=== PATIENT | male | born 1935 | race Two or more races ===

== ENCOUNTER 2019-10-14 13:24 | Inpatient (IN) | payer OTHER ==
[~2019-10-14] VITALS: Ht 172.7 cm; Wt 81.5 kg
[2019-10-14] MEDS ORDERED: SODIUM CHLORIDE 0.9% 1,000 ML IV ONE ×2 (13:35)
[2019-10-14 14:35] LABS: Basophils # (auto) 0 10 ^3/uL (0-0.2); Basophils % (auto) 1.6 % (0.0-2.0); Eosinophils # (auto) 0.1 10 ^3/uL (0-0.8); Eosinophils % (auto) 2.1 % (0.0-7.0); Hematocrit 41.4 % (41.0-53.0); Hemoglobin 13.4 g/dL (13.5-17.5); Lymphocytes # (auto) 0.7 10 ^3/uL (0.4-5.4); Lymphocytes % (auto) 21.9 % (10.0-50.0); Mean Corpuscular Hemoglobin 30.1 pg (28.0-32.0); Mean Corpuscular Hgb Conc. 32.4 g/dL (32.0-36.0); Mean Corpuscular Volume 92.8 fL (80.0-100.0); Monocytes # (auto) 0.4 10 ^3/uL (0-1.3); Neutrophils # (auto) 1.9 10 ^3/uL (1.6-8.6); Neutrophils % (auto) 61.4 % (37.0-80.0); Nucleated Red Blood Cells % 0.1 %; Platelet Count (auto) 171 10^3/uL (140-450); Red Blood Cells 4.46 10^6/uL (4.5-5.90); Red Cell Distribution Width 13.3 % (11.8-14.3)
[2019-10-14 14:52] LABS: INR 1.03 (0.9-1.15)
[2019-10-14 14:58] LABS: Albumin 3.3 g/dL (3.4-5.0); Anion Gap 6 (5-15); Blood Urea Nitrogen 14 mg/dL (7-18); Calcium 8.4 mg/dL (8.5-10.1); Carbon Dioxide 29 mmol/L (21-32); Chloride 103 mmol/L (98-107); Glucose 101 mg/dL (74-106); Potassium 3.8 mmol/L (3.5-5.1); Sodium 138 mmol/L (136-145)
[2019-10-14 15:02] LABS: Alanine Aminotransferase 93 U/L (16-61); Aspartate Aminotransferase 37 U/L (15-37); BUN/Creatinine Ratio 13.7; GFR African American 89 mL/min; GFR Non-African American 74 mL/min
[2019-10-14 15:05] LABS: Alkaline Phosphatase 67 U/L (45-117); Bilirubin, Total 0.5 mg/dL (0.2-1.0); Total Protein 6.6 g/dL (6.4-8.2)
[2019-10-14] MEDS ORDERED: HALOPERIDOL LACTATE 5 MG/ML INJ VIAL IM ONE ×2 (15:15→17:45)
[2019-10-14 17:00] LABS: Urine Bacteria NONE SEEN /hpf (None Seen); Urine Blood Negative /uL (Negative); Urine Mucus FEW (None Seen); Urine Specific Gravity 1.021 (1.001-1.035); Urine WBC 1 /hpf (0 - 3)
[2019-10-14] MEDS ORDERED: LORazepam 2MG/ML-1ML VIAL ONE (17:30)
[2019-10-14] MEDS ORDERED: LORazepam 0.5 MG TAB PO ONE (17:30)
[2019-10-14] MEDS ORDERED: HALOPERIDOL LACTATE 5 MG/ML INJ VIAL ONE (17:40)
[2019-10-14] MEDS ORDERED: diphenhdrAMINE HCL 50 MG/1 ML VL ONE (17:40)
[2019-10-14] MEDS ORDERED: diphenhdrAMINE HCL 50 MG/1 ML VL IV ONE (17:45)
[2019-10-14] MEDS ORDERED: LORazepam 2MG/ML-1ML VIAL IV ONE (17:45)
[2019-10-14] MEDS ORDERED: MORPHINE SULF INJ 2 MG/ML SYRINGE 1ML IV PRN ×2 (18:30)
[2019-10-14] MEDS ORDERED: risperiDONE 1 MG TAB PO ONE (18:30)
[2019-10-14] MEDS ORDERED: NITROGLYCERIN 0.4 MG SL TAB SL PRN (18:30)
[2019-10-14] MEDS ORDERED: LORazepam 2MG/ML-1ML VIAL IV PRN (18:30)
[2019-10-14] MEDS ORDERED: traMADol HCL 50 MG TAB PO PRN (18:30)
[2019-10-14] MEDS ORDERED: ACETAMINOPHEN 500 MG TAB PO PRN (18:30)
[2019-10-14] MEDS ORDERED: ONDANSETRON HCL 4 MG/2 ML VIAL IV PRN (18:30)
[2019-10-14] MEDS ORDERED: TEMAZEPAM 15 MG CAP PO PRN (18:30)
[2019-10-14 20:30] VITALS: BP 156/98
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
[2019-10-14 22:00] VITALS: BP 156/98
--- NOTE | 2019-10-14 22:30 | NUR ---
pt continues to yell out, and is confused, threatening staff and uncooperative with care.
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
--- NOTE | 2019-10-15 02:30 | NUR ---
pt yelling at staff, threatening, not redirectable, uncooperative with care. Sitter remains at bedside, restraints continue, skin warm and intact. Pt refuses fluids.
--- NOTE | 2019-10-15 04:30 | NUR ---
pt yelling, agitated, prn ativan given. Pt remains confused and threatening staff.
[2019-10-15 05:00] VITALS: BP 137/96
--- NOTE | 2019-10-15 06:30 | NUR ---
attempted to remove restraints, pt angry, yelling, uncooperative wtih staff, threatening, redirection ineffective. restraints continue, sitter at bedside.
--- NOTE | 2019-10-15 07:35 | NUR ---
PATIENT ROUNDS PATIENT LYING IN BED, NO DISTRESS NOTED. BED IN LOWEST POSITION, SIDE RAILS UP X2, CALL LIGHT WITHIN REACH. WILL CONTINUE TO MONITOR. AUTO ELECTRICIAN AT BEDSIDE.
[2019-10-15 09:00] VITALS: BP 156/87
--- NOTE | 2019-10-15 09:10 | NUR ---
PATIENT ROUNDS PATIENT LYING IN BED, NO DISTRESS NOTED. BED IN LOWEST POSITION, SIDE RAILS UP X2, DEVELOPMENT OFFICER AT BEDSIDE. WILL CONTINUE TO MONITOR.
[2019-10-15] MEDS: risperiDONE 1 MG TAB PO SCH (10:00)
--- NOTE | 2019-10-15 11:15 | NUR ---
PATIENT ROUNDS PATIENT LYING IN BED, NO DISTRESS NOTED. PARTIAL LINEN CHANGE, PATIENT RESTLESS DURING HYGIENE CARE. BED IN LOWEST POSITION, SIDE RAILS UP X2, GETTER OPERATOR AT BEDSIDE. WILL CONTINUE TO MONITOR.
[2019-10-15] MEDS ORDERED: HALOPERIDOL LACTATE 5 MG/ML INJ VIAL IM PRN (11:45)
[2019-10-15 13:00] VITALS: BP 145/91
--- NOTE | 2019-10-15 14:35 | NUR ---
RESTRAINTS PATIENT REMOVED FROM RESTRAINTS BY RELAY TESTER HELPER AND ASSISTED TO RESTROOM. PATIENT IS CALM AND COOPERATIVE AT THIS TIME. PATIENT ASSISTED TO BEDSIDE CHAIR AND IS EATING LUNCH, TORTILLA MAKER AT BEDSIDE. WILL CONTINUE TO MONITOR AND ASSESS PATIENT.
--- NOTE | 2019-10-15 15:43 | NUR ---
Assessment Regarding social service consult for placement. Patient is an 84-year-old male who is confused. Assessment was completed with patient daughter Domonique Ph:). Per Domonique prior to admission patient lived at [facility] and functioned independently. Per Domonique patient condition decrease and needed assistance. Per Domonique she is unable to care for patient at this time and patient is unable to return to [facility] and she is considering [facility] and [facility]. Per Domonique patient does not have any medical equipment. Per Domonique she will contact me back regarding which facility she will be placing patient. Informed Domonique she has a right to participate in all discharge planning. Domonique verbalized understanding discharge plan. Placed follow up called to Domonique at 15:38 regarding placement. Per Domonique she has been in contact with [facility] and is in the process to complete the application with the facility. Informed Domonique doctor plans on discharging patient on Friday. Domonique verbalize understanding discharge plan. Addendum: 10/15/19 at 1544 by WILLIAM GONZALEZ Amended: Links added.
[2019-10-15 17:00] VITALS: BP 131/82
--- NOTE | 2019-10-15 18:12 | NUR ---
ROUNDS PATIENT SITTING UP ON SIDE OF BED EATING DINNER, ELECTRICAL AND INSTRUMENTATION MANAGER AT BEDSIDE. PATIENT SITTING CALMLY, BED IN LOWEST POSITION SIDE RAILS UP X2 CALL LIGHT WITHIN REACH. WILL CONTINUE TO MONITOR AND INITIATE PLAN OF CARE.
--- NOTE | 2019-10-15 19:35 | NUR ---
Opening Shift Note Assumed care of patient, awake and alert. No S/S of distress/SOB or pain. Sitter at bedside and fall precautions in place. Instructed on POC and to call for assist PRN, will continue to monitor for changes Q1hr and PRN. bed in low position and call light within reach.
[2019-10-15 22:00] VITALS: BP 138/88
[2019-10-15 23:45] LABS: Folate (Folic Acid) 11.9 ng/mL (5.38-24)
[2019-10-16 04:47] VITALS: BP 120/70
--- NOTE | 2019-10-16 07:27 | NUR ---
report given to dayshift rn patient denies sob distress or pain . call light within reach. fall precautions in place. sitter at bedside. iv is intact and patent.
[2019-10-16 08:56] VITALS: BP 115/74
[2019-10-16] MEDS: risperiDONE 1 MG TAB PO SCH (10:15)
[2019-10-16 12:45] VITALS: BP 104/83
[2019-10-16] MEDS ORDERED: HALOPERIDOL LACTATE 5 MG/ML INJ VIAL IM PRN (17:45)
--- NOTE | 2019-10-16 19:30 | NUR ---
Opening Shift Note Assumed care of patient, awake. Pt arousable to name, is unaware of location, situation or time. No S/S of distress/SOB or pain. Pt calm and relaxed. No S/S of agitation or combative nature at this time. Safety measures in place, bed in lowest position, bed railed raised x2, call light within reach, sitter at bedside. Instructed on POC and to call for assist PRN, will continue to monitor for changes Q1hr and PRN.
[2019-10-16 21:00] VITALS: BP 116/73
[2019-10-16] MEDS: MIRTAZAPINE 30 MG TAB PO SCH (22:00)
--- NOTE | 2019-10-16 22:00 | NUR ---
Pt refused prescribed Remeron. Pt educated on the benefits of taking the medication. Pt still refused. Will continue to monitor for changes in mood and/ or status.
[2019-10-17 05:00] VITALS: BP 130/83
[2019-10-17 07:04] LABS: Basophils # (auto) 0 10 ^3/uL (0-0.2); Basophils % (auto) 0.7 % (0.0-2.0); Eosinophils # (auto) 0.2 10 ^3/uL (0-0.8); Eosinophils % (auto) 3.4 % (0.0-7.0); Hematocrit 44.1 % (41.0-53.0); Hemoglobin 14.9 g/dL (13.5-17.5); Lymphocytes % (auto) 19.9 % (10.0-50.0); Mean Corpuscular Hemoglobin 31.2 pg (28.0-32.0); Mean Corpuscular Hgb Conc. 33.7 g/dL (32.0-36.0); Mean Corpuscular Volume 92.5 fL (80.0-100.0); Monocytes # (auto) 0.6 10 ^3/uL (0-1.3); Neutrophils # (auto) 3.3 10 ^3/uL (1.6-8.6); Nucleated Red Blood Cells % 0.1 %; Platelet Count (auto) 188 10^3/uL (140-450); Red Blood Cells 4.77 10^6/uL (4.5-5.90); Red Cell Distribution Width 13.8 % (11.8-14.3); White Blood Cell 5.2 10^3/uL (4.4-10.8)
[2019-10-17 07:22] LABS: BUN/Creatinine Ratio 19.5; Calcium 8.8 mg/dL (8.5-10.1); Magnesium 2.5 mg/dL (1.6-2.6); Potassium 3.6 mmol/L (3.5-5.1)
--- NOTE | 2019-10-17 08:00 | NUR ---
Morning note Patient ambulating from restroom to bed with a steady gait, respirations even and unlabored; no distress noted. Instructed patient on POC, fall precautions and to call for assistance as needed. Patient verbalized understanding although frequent reorientation is needed due to confusion. Fall precautions in place with call light within reach.
[2019-10-17 09:00] VITALS: BP 126/75
[2019-10-17] MEDS: risperiDONE 1 MG TAB PO SCH (09:06)
--- NOTE | 2019-10-17 11:00 | NUR ---
Patient refusing to have telemonitor in place Education provided to the patient. Patient unable to comprehend due to confusion.
--- NOTE | 2019-10-17 12:56 | NUR ---
EEG- ELECTROENCEPHALOGRAM COMPLETED ON 10/17/2019 @ 10:10.
[2019-10-17 13:00] VITALS: BP 117/65
--- NOTE | 2019-10-17 13:14 | NUR ---
Nutrition Assessment Notes Please refer to link for full assessment notes. Est Energy needs: 3478-9663 kcals (17-20 kcal/kgBW) Est Protein needs: 91-101 gms/day (1.0-1.1 gm/kgBW) Will continue to monitor and reassess prn. Addendum: 10/17/19 at [address] Amended: Links added.
--- NOTE | 2019-10-17 14:15 | NUR ---
MD was at bedside - Dr. Bhat; notified MD of patient's refusal to have telemonitor in place MD verbalized understanding.
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
[2019-10-17] MEDS ORDERED: FINASTERIDE 5 MG TAB PO SCH (15:15)
--- NOTE | 2019-10-17 16:50 | NUR ---
Scanned bladder: >200ml urine located Patient reports the urge to urinate with very little UO. Notified .
[2019-10-17 17:00] VITALS: BP 117/72
--- NOTE | 2019-10-17 17:15 | NUR ---
MD verbalized understanding RE: bladder scan result Urology consult to remain as ordered per MD.
--- NOTE | 2019-10-17 18:33 | NUR ---
Closing note Patient resting in bed with even and unlabored respirations, no distress noted. Fall precautions in place with call light within reach.
--- NOTE | 2019-10-17 18:42 | NUR ---
RE: Behavior Patient ambulated to nursing station requesting to call his . Patient stated "I want to call my so that she can come pick me up. Or my daughter. I want them to come pick me up." Instructed patient that he is not discharged by the doctor. Reoriented patient to situation and surroundings. Instructed patient that this RN will call his and transfer the phone call to bedside. Patient returned to hospital bed with no complications. This RN called patient's daughter, Domonique. No answer. Voicemail left.
--- NOTE | 2019-10-17 18:55 | NUR ---
RE: Behavior Patient ambulated to nursing station. Patient stated "I'm going to call a taxi to take me home." Reoriented patient to surroundings and situation. Patient unable to comprehend d/t confusion. Patient returned to hospital bed with no complications. Call light within reach.
--- NOTE | 2019-10-17 19:20 | NUR ---
Opening Shift Note Assumed care of patient, awake and alert. Pt only oriented to self. Pt unaware of place, time or situation. Pt was noted attempting to walk out of assigned room and into nurses station. Pt redirected to room and reoriented to situation and hospital setting. Per day RN, pt was attempting to call his and daughter to pick him up and then attempted to call a taxi as well. Pt not combative or aggressive at this time, but very confused and distractible. No S/S of distress/SOB or pain. Safety measures in place, bed in lowest position, bed rails raised x2, call light within reach, sitter at bedside. Instructed on POC and to call for assist PRN, will continue to monitor for changes Q1hr and PRN. Sitter advised to call this RN if the patient becomes agitated or combative. This RN has been able to calm the patient and deescalate him.
--- NOTE | 2019-10-17 19:25 | NUR ---
Care endorsed to LAWSON Kraus.
[2019-10-17 22:00] VITALS: BP 117/74
[2019-10-17] MEDS: MIRTAZAPINE 30 MG TAB PO SCH (22:02)
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
--- NOTE | 2019-10-18 05:00 | NUR ---
PT REFUSED 0500 VITALS RN NOTIFIED
--- NOTE | 2019-10-18 06:17 | NUR ---
Pt refused morning vitals and is still refusing to wear his tele box.
--- NOTE | 2019-10-18 08:00 | NUR ---
Received pt resting in bed, call light within reach, sitter at bed side, will continue to monitor pt.
--- NOTE | 2019-10-18 08:30 | NUR ---
Dr. Avila / neuro at bed side to see pt.
[2019-10-18 10:32] VITALS: BP 146/78
[2019-10-18] MEDS: risperiDONE 1 MG TAB PO SCH (11:02)
[2019-10-18 11:56] LABS: Free T4 (Free Thyroxine) 1.42 ng/dL (0.89-1.76)
[2019-10-18 11:57] LABS: Free T3 2.91 pg/mL (2.3-4.2)
[2019-10-18 13:21] VITALS: BP 95/60
[2019-10-18 16:53] VITALS: BP 110/70
--- NOTE | 2019-10-18 16:56 | NUR ---
D/C Planning Placed call to patient daughter Domonique several times today regarding placement for patient no answer no call back.
[2019-10-18 22:00] VITALS: BP 135/71
[2019-10-18] MEDS: MIRTAZAPINE 30 MG TAB PO SCH (22:52)
[2019-10-19 06:57] LABS: Basophils # (auto) 0 10 ^3/uL (0-0.2); Eosinophils # (auto) 0.1 10 ^3/uL (0-0.8); Hematocrit 40.9 % (41.0-53.0); Hemoglobin 13.7 g/dL (13.5-17.5); Lymphocytes # (auto) 0.7 10 ^3/uL (0.4-5.4); Lymphocytes % (auto) 13.6 % (10.0-50.0); Mean Corpuscular Hgb Conc. 33.5 g/dL (32.0-36.0); Mean Corpuscular Volume 92.5 fL (80.0-100.0); Monocytes # (auto) 0.7 10 ^3/uL (0-1.3); Monocytes % (auto) 14.3 % (0.0-12.0); Neutrophils # (auto) 3.5 10 ^3/uL (1.6-8.6); Neutrophils % (auto) 69.1 % (37.0-80.0); Platelet Count (auto) 180 10^3/uL (140-450); Red Blood Cells 4.42 10^6/uL (4.5-5.90); Red Cell Distribution Width 13.3 % (11.8-14.3); White Blood Cell 5.1 10^3/uL (4.4-10.8)
[2019-10-19 07:03] LABS: Potassium 3.8 mmol/L (3.5-5.1)
[2019-10-19 07:11] LABS: BUN/Creatinine Ratio 29.7; Calcium 9.1 mg/dL (8.5-10.1); Magnesium 2.4 mg/dL (1.6-2.6)
[2019-10-19 09:00] VITALS: BP 124/79
[2019-10-19] MEDS: risperiDONE 1 MG TAB PO SCH (09:07)
--- NOTE | 2019-10-19 10:51 | NUR ---
Received pt resting in bed, call light within reach, sitter at bed side, pt resting comfortably, will continue to monitor pt.
[2019-10-19] MEDS ORDERED: TAMSULOSIN HYDROCHLORIDE 0.4 MG CAP PO ONE (12:15)
[2019-10-19] MEDS ORDERED: FINASTERIDE 5 MG TAB PO ONE (12:15)
[2019-10-19 13:00] VITALS: BP 121/73
--- NOTE | 2019-10-19 14:21 | NUR ---
Dr. Bhat at unit to see pt.
[2019-10-19] MEDS ORDERED: SERT-274 PO (14:43)
[2019-10-19] MEDS ORDERED: LORA0.5T20 PO (14:43)
[2019-10-19] MEDS ORDERED: DONE10TA40 PO (14:43)
--- NOTE | 2019-10-19 16:00 | NUR ---
D/C Planning Placed several calls to patient daughter Domonique no answer, left a message. Placed call to LAURA Bailey advising her patient daughter has not return my calls.
[2019-10-19 16:41] VITALS: BP 134/78
--- NOTE | 2019-10-19 19:32 | NUR ---
Opening Shift Note Assumed care of patient, awake and alert. No S/S of distress/SOB or pain. Instructed on POC and to call for assist as needed. Patient is laying in bed with the rails up x2. Bed is locked in the lowest position. Call light explained and placed within reach. Sitter at bedside for patient safety. Will continue to monitor.
[2019-10-19 22:00] VITALS: BP 130/80
[2019-10-19] MEDS: MIRTAZAPINE 30 MG TAB PO SCH (22:50)
[2019-10-20 05:00] VITALS: BP 146/78
[2019-10-20 09:00] VITALS: BP 112/68
[2019-10-20] MEDS: risperiDONE 1 MG TAB PO SCH (09:05)
[2019-10-20] MEDS ORDERED: TAMSULOSIN HYDROCHLORIDE 0.4 MG CAP PO SCH (10:00)
[2019-10-20] MEDS ORDERED: FINASTERIDE 5 MG TAB PO SCH (10:00)
[2019-10-20 13:00] VITALS: BP 116/73
--- NOTE | 2019-10-20 14:16 | NUR ---
Nutrition Followup Notes wt: 81.5 kg Pt was sleeping with no relatives at bedside when rounded this morning. Pt is currently on cardiac diet with inadequate Po fo 50% x 4 per RN doc Est Energy needs: 6001-3190 kcals (17-20 kcal/kgBW), Est Protein needs: 91-101 gms/day (1.0-1.1 gm/kgBW). Will continue to monitor and reassess prn. LABS: BUN 35 H rest lab wnl GI: Pt had 2 BM today per RN doc BS: 14 mod risk Refer to wound assessment report for full details. PES: Obesity aeb 131% IBW and BMI of 30.6 kg/m2 r/t energy intake in excess of energy needs Comments: Will continue to monitor PO status, skin status, pertinent labs and weight trends. Will f/u in 3-5 days. Rec: 1) Continue to closely monitor pt PO intake to meet at least 75% of meals. 2) Continue current plan of care
[2019-10-20 15:52] VITALS: BP 116/73
--- NOTE | 2019-10-20 16:19 | NUR ---
D/C Planning Regarding social service consult for hospice evaluation. Placed a follow up called to patient daughter Domonique at 12:15 regarding order for hospice. Information and choice letter was given to Domonique. Domonique requested [facility]. Faxed clinical information to [facility] advising them patient will need placement. Per Barbara with [facility] patient has been accepted and patient will be placed at [facility] in [facility]. Transportation has been arranged with [facility] via [employer] at 21:00. LAWSON Patricia was informed.
--- NOTE | 2019-10-20 16:30 | NUR ---
Discharge instructions given as ordered. Encourage to follow up with PMD as instructed. Pt confused unable to sign discharge paperwork. Medication reconciliation form completed and copy given to patient. No home medications held in Pharmacy, and no needed vaccines to be given. IV removed with catheter intact, pressure dressing applied. Telemetry unit returned to ICU. Awaiting for [employer] transportation to warehouse order picker pt at 1900.
[2019-10-20 17:00] VITALS: BP 117/68
[2019-10-20] MEDS: MIRTAZAPINE 30 MG TAB PO SCH (17:08)
[2019-10-20 21:15] VITALS: BP 115/61
--- NOTE | 2019-10-20 21:58 | NUR ---
PATIENT TRANSFERRED TO [facility]IA [facility]. VITALS STABLE AND NO COMPLAINTS OF PAIN.
== END 2019-10-20 21:56 | disposition hospice, home (50) | DRG 57 ==
LOC: EDBD 13:24 → ER 13:24 → TELE 13:25 → TELE-WESTW 20:30
PROVIDERS: ADMIT Internal Medicine; ATTEND Internal Medicine
DX: G30.9 Alzheimer's disease, unspecified (principal); J90 Pleural effusion, not elsewhere classified; F05 Delirium due to known physiological condition; F02.81 Dementia in other diseases classified elsewhere, unspecified severity, with behavioral disturbance; N13.8 Other obstructive and reflux uropathy; D72.819 Decreased white blood cell count, unspecified; E88.09 Other disorders of plasma-protein metabolism, not elsewhere classified; N40.1 Benign prostatic hyperplasia with lower urinary tract symptoms; I67.2 Cerebral atherosclerosis; Z79.899 Other long term (current) drug therapy; Z88.8 Allergy status to other drugs, medicaments and biological substances; Z03.818 Encounter for observation for suspected exposure to other biological agents ruled out
CPT/HCPCS: 36415; 70450; 71045; 80048; 80053; 81001; 82550; 82607; 82746; 83735; 83880; 84439; 84443; 84481; 84484; 85025; 85610; 85730; 87426; 95819; 96360; 96361; 96372; G0378